=== PATIENT | female | born 1945 | race Caucasian/White ===

== ENCOUNTER 2017-01-20 19:40 | Emergency (ER) | payer MEDICARE, OTHER ==
[2017-01-20 20:25] LABS: ALBUMIN 4.4 gm/dL (3.4-5.0); ALKALINE PHOSPHATASE 89 U/L (50-136); ALT/SGPT 17 U/L (3.5-33.9); AST/SGOT 25 U/L (7.04-26.96); BILIRUBIN,TOTAL 0.38 mg/dL (0.0-1.0); BLOOD UREA NITROGEN 12 mg/dL (7-18); CALCIUM 9.5 mg/dL (8.7-10.7); CARBON DIOXIDE 30 mmol/L (21-32); CREATININE 0.6 mg/dL (0.6-1.3); POTASSIUM 3.8 mmol/L (3.5-5.1); SODIUM 142 mmol/L (136-145); TOTAL PROTEIN 7.7 gm/dL (6.4-8.2)
[2017-01-20 20:34] LABS: GLUCOSE,RANDOM 36 mg/dL (70-99)
== END 2017-01-20 21:22 | disposition home or self-care (01) ==
LOC: ER 19:40
PROVIDERS: General Practice
DX: E11.649 Type 2 diabetes mellitus with hypoglycemia without coma (principal); J44.9 Chronic obstructive pulmonary disease, unspecified; I10 Essential (primary) hypertension; Z99.81 Dependence on supplemental oxygen; F17.210 Nicotine dependence, cigarettes, uncomplicated
CPT/HCPCS: 36415; 80053; 82962; 96374; 96375; 99070; 99283; 99285-25

== ENCOUNTER 2017-02-11 21:47 | Emergency (ER) | payer MEDICARE, OTHER | END 2017-02-12 00:14 | disposition home or self-care (01) | LOC: ER 21:47 | DX: J06.9 Acute upper respiratory infection, unspecified (principal); R11.0 Nausea; R53.1 Weakness; R42 Dizziness and giddiness; I51.9 Heart disease, unspecified; Z88.5 Allergy status to narcotic agent; Z79.899 Other long term (current) drug therapy; Z79.4 Long term (current) use of insulin | CPT/HCPCS: 96372; 99282-25; 99283 ==